=== PATIENT | male | born 1955 | race African-American/Black ===

== ENCOUNTER → 2017-03-11 | Outpatient (CLI) | payer MEDICARE | LOC: RAD 09:02 | PROVIDERS: ATTEND Internal Medicine Gastroenterology | DX: K76.9 Liver disease, unspecified (principal); R93.3 Abnormal findings on diagnostic imaging of other parts of digestive tract | CPT/HCPCS: 74181 ==

== ENCOUNTER 2017-05-14 14:04 | Emergency (ER) | payer OTHER, MEDICARE ==
[2017-05-14 14:10] VITALS: BP 139/83
--- NOTE | 2017-05-14 15:06 | ER Document Report ---
ED Medical Screen (RME) - General Chief Complaint: Other Stated Complaint: DIABETIC CONCERN Time Seen by Provider: 05/14/17 15:05 Mode of Arrival: Ambulatory Information source: Patient Notes: This is a 61-year-old man with a history of diabetes that gave himself a subcutaneous injection with air by accident. The patient states he had 2 syringes and one had insulin and the other did not and he did not really pay attention while giving himself a subcutaneous injection into the right lower abdominal wall. After he realized that he injected air, [facility] He then called the ICU here and was referred to the emergency room. The patient denies any chest pain or shortness of breath. The patient states he feels the same. He is currently drinking soda in triage. TRAVEL OUTSIDE OF THE [place] IN LAST 30 DAYS: No - HPI Onset: Just prior to arrival Onset/Duration: Sudden Quality of pain: No pain Severity: None Pain Level: Denies Associated Symptoms: None Exacerbated by: Denies Relieved by: Denies Similar symptoms previously: No Recently seen / treated by doctor: No - Related Data Smoking: Non-smoker Frequency of alcohol use: None Drug Abuse: None Allergies/Adverse Reactions: lisinopril [Lisinopril] Allergy (Severe, Verified 05/14/17 14:08) Past Medical History - General Information source: Patient - Social History Cigarette use (# per day): No Chew tobacco use (# tins/day): No Frequency of alcohol use: None Drug Abuse: None Lives with: Spouse/Significant other Family history: None - Past Medical History Cardiac Medical History: Reports: Hx Congestive Heart Failure, Hx Hypercholesterolemia, Hx Hypertension Pulmonary Medical History: Reports: Hx Bronchitis, Hx COPD, Hx Pneumonia, Hx Sleep Apnea - Obstructive Endocrine Medical History: Reports: Hx Diabetes Mellitus Type 1, Hx Diabetes Mellitus Type 2 Renal/ Medical History: Reports: Hx Benign Prostatic Hyperplasia, Hx End Stage Renal Disease. Denies: Hx Peritoneal Dialysis GI Medical History: Reports: Hx Gastroesophageal Reflux Disease Musculoskeltal Medical History: Reports Hx Musculoskeletal Deformity, Reports Hx Musculoskeletal Trauma Psychiatric Medical History: Reports: Hx Bipolar Disorder, Hx Depression, Hx Post Traumatic Stress Disorder Past Surgical History: Reports: Hx Orthopedic Surgery - Right shoulder(rotator cuff), Right wrist(carpal tunnel) - Immunizations Immunizations up to date: Yes Hx Diphtheria, Pertussis, Tetanus Vaccination: Yes Review of Systems - Review of Systems Constitutional: No symptoms reported EENT: No symptoms reported Cardiovascular: No symptoms reported Respiratory: No symptoms reported Gastrointestinal: No symptoms reported Genitourinary: No symptoms reported Male Genitourinary: No symptoms reported Musculoskeletal: See HPI Skin: See HPI Hematologic/Lymphatic: No symptoms reported Neurological/Psychological: No symptoms reported Physical Exam - Vital signs Vitals: Temp Pulse Resp BP Pulse Ox 98.1 F 103 H 20 139/83 H 98 05/14/17 14:05/14/17 14:05/14/17 14:05/14/17 14:05/14/17 14:09 Notes: Physical exam: GENERAL: 61-year-old man, alert and oriented 3, no acute distress HEAD: Atraumatic, normocephalic. EYES: Pupils equal round and reactive to light, extraocular movements intact, sclera anicteric, conjunctiva are normal. ENT: Moist mucous membranes. NECK: Normal range of motion, supple without lymphadenopathy or JVD. LUNGS: Breath sounds clear to auscultation bilaterally and equal. No wheezes rales or rhonchi. HEART: Regular rate and rhythm without murmurs, rubs or gallops. ABDOMEN: Soft, normoactive bowel sounds. No tenderness to palpation. No guarding, no rebound. No masses appreciated. No obvious lesions crepitus or fluctuance in the right lower quadrant where the injection was given. EXTREMITIES: Normal range of motion, no pitting or edema. No clubbing or cyanosis. NEUROLOGICAL: Cranial nerves II through XII grossly intact. Normal speech, normal gait. PSYCH: Normal mood, normal affect. SKIN: Warm, Dry, normal turgor, no rashes or lesions noted. Course - Re-evaluation Re-evalutation: 05/14/17 15:10 The injection occurred approximately 1 hour ago. I did go over the importance of paying attention while giving himself injections. I did let him know that an injection of air into the pain can be lethal. I reassured him that the injection into the subcutaneous tissues post little risk. - Vital Signs Vital signs: Temp Pulse Resp BP Pulse Ox 98.1 F 103 H 20 139/83 H 98 05/14/17 14:05/14/17 14:05/14/17 14:09 05/14/17 14:09 05/14/17 14:09 Doctor's Discharge - Discharge Clinical Impression: Skin injection with air Condition: Stable Disposition: HOME, SELF-CARE Additional Instructions: Recommendations: Continue current medicines as previously prescribed. In general, injections into the skin with air are not harmful. However, injections of air into the veins can be lethal. So always pay attention when giving yourself and injection. To the emergency room for chest pain, shortness of breath or any problems. Follow-up with your primary care doctor
== END 2017-05-14 15:09 | disposition home or self-care (01) ==
LOC: ER 14:04
DX: Z03.89 Encounter for observation for other suspected diseases and conditions ruled out (principal); E11.9 Type 2 diabetes mellitus without complications
CPT/HCPCS: 99281

== ENCOUNTER 2017-09-19 10:07 | Emergency (ER) | payer OTHER, MEDICARE ==
[2017-09-19] MEDS ORDERED: HYDROCODONE/ACETAMINOPHEN 5-325 MG TABLET PO ONE (10:19)
[2017-09-19] MEDS ORDERED: TETRACAINE HCL 0.5% OPH SOLN 2 ML OS ONE (10:19)
--- NOTE | 2017-09-19 10:41 | ER Document Report ---
ED General - General Chief Complaint: Eye Problem Stated Complaint: LEFT EYE PAIN Time Seen by Provider: 09/19/17 10:16 Mode of Arrival: Ambulatory Information source: Patient Notes: 61 yr old male who had a cataract surgery performed in 1992 left side presents after striking his eye on a garbage can yesterday. pt ntoes he is unable to see. today he awoke and could barely see light TRAVEL OUTSIDE OF THE [place] IN LAST 30 DAYS: No - HPI Onset: Yesterday Onset/Duration: Sudden Quality of pain: Sharp Severity: Severe Pain Level: 5 Associated symptoms: Other Exacerbated by: Denies Relieved by: Denies Similar symptoms previously: No Recently seen / treated by doctor: No - Related Data Allergies/Adverse Reactions: lisinopril [Lisinopril] Allergy (Severe, Verified 09/19/17 10:11) Home Medications: Current Home Medications Alendronate Sodium [Fosamax "Weekly" 35 mg Tablet] 35 mg PO [id number] 09/19/17 [ History] Escitalopram Oxalate [Lexapro] 20 mg PO DAILY 09/19/17 [History] Gemfibrozil 600 mg PO BID 09/19/17 [History] Losartan Potassium [Cozaar 50 mg Tablet] 50 mg PO DAILY 09/19/17 [History] Magnesium Citrate 250 mg PO DAILY 09/19/17 [History] Risperidone [Risperdal 1 mg Tablet] 4 mg PO QHS 09/19/17 [History] Tiotropium [place] [Spiriva] 18 mcg PO DAILY 09/19/17 [History] Past Medical History - Social History Smoking Status: Current Every Day Smoker Cigarette use (# per day): Yes Chew tobacco use (# tins/day): No Smoking Education Provided: No Frequency of alcohol use: Occasional Drug Abuse: None Family History: Reviewed & Not Pertinent Patient has suicidal ideation: No Patient has homicidal ideation: No - Past Medical History Cardiac Medical History: Reports: Hx Congestive Heart Failure, Hx Hypercholesterolemia, Hx Hypertension Pulmonary Medical History: Reports: Hx Bronchitis, Hx COPD, Hx Pneumonia, Hx Sleep Apnea - Obstructive Endocrine Medical History: Reports: Hx Diabetes Mellitus Type 1, Hx Diabetes Mellitus Type 2 Renal/ Medical History: Reports: Hx Benign Prostatic Hyperplasia, Hx End Stage Renal Disease. Denies: Hx Peritoneal Dialysis GI Medical History: Reports: Hx Gastroesophageal Reflux Disease Musculoskeltal Medical History: Reports Hx Musculoskeletal Deformity, Reports Hx Musculoskeletal Trauma Psychiatric Medical History: Reports: Hx Bipolar Disorder, Hx Depression, Hx Post Traumatic Stress Disorder Past Surgical History: Reports: Hx Orthopedic Surgery - Right shoulder(rotator cuff), Right wrist(carpal tunnel) - Immunizations Immunizations up to date: Yes Hx Diphtheria, Pertussis, Tetanus Vaccination: Yes Hx Pneumococcal Vaccination: 08/08/14 Review of Systems - Review of Systems Notes: REVIEW OF SYSTEMS: CONSTITUTIONAL : Denies fever, chills, or sweats. Denies recent illness. EENT: left eye pain blindness CARDIOVASCULAR: Denies chest pain. Denies palpitations or racing or irregular heart beat. Denies ankle edema. RESPIRATORY: Denies cough, cold, or chest congestion. Denies shortness of breath, difficulty breathing, or wheezing. GASTROINTESTINAL: Denies abdominal pain or distention. Denies nausea, vomiting , or diarrhea. Denies blood in vomitus, stools, or per rectum. Denies black, tarry stools. Denies constipation. GENITOURINARY: Denies difficulty urinating, painful urination, burning, frequency, blood in urine, or discharge. MUSCULOSKELETAL: Denies back or neck pain or stiffness. Denies joint pain or swelling. SKIN: Denies rash, lesions or sores. HEMATOLOGIC : Denies easy bruising or bleeding. LYMPHATIC: Denies swollen, enlarged glands. NEUROLOGICAL: Denies confusion or altered mental status. Denies passing out or loss of consciousness. Denies dizziness or lightheadedness. Denies headache. Denies weakness or paralysis or loss of use of either side. Denies problems with gait or speech. Denies sensory loss, numbness, or tingling. Denies seizures. PSYCHIATRIC: Denies anxiety or stress. Denies depression, suicidal ideation, or homicidal ideation. ALL OTHER SYSTEMS REVIEWED AND NEGATIVE. Dictation was performed using [employer] voice recognition software PHYSICAL EXAMINATION: GENERAL: Well-appearing, well-nourished and in no acute distress. HEAD: Atraumatic, normocephalic. EYES: right eye is normal, left eye the conjunctiva is swollen erythemetous, there is a hyphema, right pressure is 20 , left unable ot attain ENT: Nares patent, oropharynx clear without exudates. Moist mucous membranes. NECK: Normal range of motion, supple without lymphadenopathy LUNGS: Breath sounds clear to auscultation bilaterally and equal. No wheezes rales or rhonchi. HEART: Regular rate and rhythm without murmurs ABDOMEN: Soft, nontender, nondistended abdomen. No guarding, no rebound. No masses appreciated. Musculoskeletal: Normal range of motion, no pitting or edema. No cyanosis. NEUROLOGICAL: Cranial nerves grossly intact. Normal speech, normal gait. Normal sensory, motor exams PSYCH: Normal mood, normal affect. SKIN: Warm, Dry, normal turgor, no rashes or lesions noted. Physical Exam - Vital signs Vitals: Temp Pulse Resp BP Pulse Ox 98.5 F 115 H 20 134/77 H 95 09/19/17 10:11 09/19/17 10:11 09/19/17 10:11 09/19/17 10:11 09/19/17 10:11 Course - Re-evaluation Re-evalutation: 09/19/17 10:36 very high suspicion for blindness from a retrbulbar hemorrhage , unable ot assess pressure in the eye due to severe pain. Dr valdivia who is not pipe production worker was paged, went ot voicemail Dr ochoa who is not pipe production worker was paged , he agrees with concerns for retrobulbar hemorrhage 09/19/17 10:42 diogenes rojas paged they do not have capabilites ot take patient adamdachristiana moored CT ordered without lab work 09/19/17 10:55 Dr Anguiano optho requests a recheck pressure, I explained to her as unable to get it the first time 09/19/17 11:29 CT finding is concerning for penetrating globe injurywith loss of lense [facility] again 09/19/17 11:36 Dr Anguiano accepts transfer , they request ED to ED transfer , requests plastic cover over eye 09/19/17 15:58 - Vital Signs Vital signs: Temp Pulse Resp BP Pulse Ox 98.5 F 99 16 148/94 H 93 09/19/17 11:56 09/19/17 13:16 09/19/17 13:16 09/19/17 13:16 09/19/17 13:16 - Laboratory Result Diagrams: 09/19/17 10:55 09/19/17 10:55 Laboratory results interpreted by me: 09/19/17 09/19/17 10:55 10:55 RBC 4.06 L Hgb 13.3 L RDW 14.6 H Potassium 3.5 L Glucose 147 H - Diagnostic Test Radiology reviewed: Image reviewed, Reports reviewed Critical Care Note - Critical Care Note Total time excluding time spent on procedures (mins): 55 Comments: minutes of critical care time spent in direct contact evaluating and reevaluating the patient, treating symptoms, reviewing labs and studies and speaking with family and consultants excluding any procedures Discharge - Discharge Clinical Impression: Ruptured globe of left eye Qualifiers: Encounter type: initial encounter Qualified Code(s): S05.32XA - Ocular laceration without prolapse or loss of intraocular tissue, left eye, initial encounter Condition: Critical Disposition: [facility] Referrals: ALTA RAMIREZ MD [Primary Care Provider] - Follow up as needed
--- NOTE | 2017-09-19 11:27 | RADIOLOGY REPORT (SQ) ---
EXAM DESCRIPTION: CT ORBIT/SELLA WITH COMPLETED DATE/TIME: 09/19/2017 11:14 am REASON FOR STUDY: left side orbital injury COMPARISON: None. TECHNIQUE: Post contrast images through the orbits windowed for bone and soft tissue. Additional co sharla and sagittal reconstructed images reviewed. All images stored on PACS. All CT scanners at this facility use dose modulation, iterative reconstruction, and/or weight based d osing when appropriate to reduce radiation dose to as low as reasonably achievable (ALARA). [facility]: Dose Right [facility]: CareDose [facility]: Dose Right [facility]: Teradose 4D [facility]: [facility] CONTRAST TYPE AND DOSE: contrast/concentration: Isovue 370.00 mg/ml; Total Contrast Delivered: 50.0 ml; Total Saline Delivered: 50.0 ml RENAL FUNCTION: Not available. RADIATION DOSE: Up-to-date CT equipment and radiation dose reduction techniques were employed. CTDIv ol: 30.4 mGy. DLP: 427 mGy-cm. . LIMITATIONS: None. FINDINGS: FACIAL BONES: No fracture or bone lesion. ORBITS: Disruption of the normal architecture of the left globe. There is heterogeneous increased de nsity within the globe. The lens seen on the prior CT in 2014 is not visualized. No retrobulbar or hemorrhage. PARANASAL SINUSES: Clear. No significant mucosal thickening, mass or fluid. SOFT TISSUES: Left periorbital hematoma. INFERIOR BRAIN: Limited view. No acute findings. OTHER: No other significant finding. IMPRESSION: Penetrating injury to left globe with disruption of the lens and intra ocular hematoma. TECHNICAL DOCUMENTATION: JOB ID: [id number] Quality ID # [id number]: Final reports with documentation of one or more dose reduction techniques (e.g., Au tomated exposure control, adjustment of the mA and/or kV according to patient size, use of iterative reconstruction technique) 2010 [employer] [place]- All Rights Reserved
[2017-09-19] MEDS ORDERED: DIPH/PERTUSS(ACELL)/TETANUS VAC/PF 0.5 ML SYR (>=10YO) IM ONE (11:28)
[2017-09-19] MEDS ORDERED: CEFAZOLIN 1 GM/D5W RTU 1 GM/50 ML RTUPB IV ONE (11:28)
[2017-09-19] MEDS ORDERED: HYDROMORPHONE HCL INJ/PF 2 MG/ML AMPULE IV ONE ×2 (11:28→13:19)
[2017-09-19 11:50] LABS: ABSOLUTE BASOPHILS # (AUTO) 0.1 10^3/uL (0.0-0.2); ABSOLUTE EOSINOPHILS # (AUTO) 0.1 10^3/uL (0.0-0.6); ABSOLUTE LYMPHOCYTES (AUTO) 1.7 10^3/uL (0.5-4.7); ABSOLUTE MONOCYTES (AUTO) 0.4 10^3/uL (0.1-1.4); ABSOLUTE NEUT (AUTO) 5.3 10^3/uL (1.7-8.2); BASOPHILS % (AUTO) 0.7 % (0-2); EOSINOPHILS % (AUTO) 1.1 % (0-6); HEMATOCRIT 39.1 % (37.9-51.0); HEMOGLOBIN 13.3 g/dL (13.5-17.0); HGB HCT DIFFERENCE 0.8; LYMPHOCYTES % (AUTO) 22.4 % (13-45); MEAN CORPUSCULAR HEMOGLOBIN 32.8 pg (27.0-33.4); MEAN CORPUSCULAR VOLUME 96 fl (80-97); MONOCYTES % (AUTO) 5.8 % (3-13); RED BLOOD COUNT 4.06 10^6/uL (4.35-5.55); RED CELL DISTRIBUTION WIDTH 14.6 % (11.5-14.0); WHITE BLOOD COUNT 7.6 10^3/uL (4.0-10.5)
[2017-09-19 11:56] LABS: ALANINE AMINOTRANSFERASE 52 U/L (21-72); ALBUMIN 4.4 g/dL (3.5-5.0); ALKALINE PHOSPHATASE 85 U/L (38-126); ANION GAP 18 (5-19); ASPARTATE AMINO TRANSFERASE 36 U/L (17-59); BILIRUBIN,DIRECT 0.4 mg/dL (0.0-0.4); BILIRUBIN,TOTAL 0.5 mg/dL (0.2-1.3); BLOOD UREA NITROGEN 19 mg/dL (7-20); CALCIUM 9.4 mg/dL (8.4-10.2); CARBON DIOXIDE 26 mmol/L (22-30); CHLORIDE 100 mmol/L (98-107); CREATININE RESULT 1.14 mg/dL (0.52-1.25); GLUCOSE 147 mg/dL (75-110); POTASSIUM 3.5 mmol/L (3.6-5.0); SODIUM 143.9 mmol/L (137-145); TOTAL PROTEIN 7.2 g/dL (6.3-8.2)
[2017-09-19 13:17] VITALS: BP 148/94
== END 2017-09-19 13:26 | disposition short-term general hospital (02) ==
LOC: ER 10:07
DX: S05.32XA Ocular laceration without prolapse or loss of intraocular tissue, left eye, initial encounter (principal); W19.XXXA Unspecified fall, initial encounter; Y93.89 Activity, other specified; F17.210 Nicotine dependence, cigarettes, uncomplicated; I10 Essential (primary) hypertension; J44.9 Chronic obstructive pulmonary disease, unspecified; E11.9 Type 2 diabetes mellitus without complications; Z88.8 Allergy status to other drugs, medicaments and biological substances
CPT/HCPCS: 96376; 99291; 90471; 96375; 96365; 36415; 85025; 80053; 70481; 90715; J0690; J1170

== ENCOUNTER 2017-12-18 19:12 | Emergency (ER) | payer OTHER, MEDICARE ==
[2017-12-18] MEDS ORDERED: NOREPINEPHRINE BITARTRATE INJ/PF 4 MG/4 ML SDV IV ONE (19:19)
[2017-12-18] MEDS ORDERED: VECURONIUM BROMIDE INJ 10 MG VIAL IV ONE ×2 (19:26→19:28)
[2017-12-18] MEDS ORDERED: ETOMIDATE INJ/PF 20 MG/10 ML SDV IV ONE (19:27)
--- NOTE | 2017-12-18 19:46 | ER Document Report ---
ED General - General Mode of Arrival: Medic Information source: Emergency Med Personnel Cannot obtain history due to: Intubated TRAVEL OUTSIDE OF THE [place] IN LAST 30 DAYS: No <JER VILLA - Last Filed: 12/18/17 22:08> <MARAMAYAMARILEE - Last Filed: 12/18/17 22:47> - General Stated Complaint: FALL,HEAD INJURY Time Seen by Provider: 12/18/17 19:12 Notes: Patient is a 62 year old male with a history of CHF, COPD, hypertension and diabetes presents to the emergency department via EMS due to a fall and being found unresponsive. states the patient was walking in his home when he fell and hit is head. states she found the patient on the floor and unresponsive although he was breathing for a moment. states she saw the patient take his last breath prior to EMS arrival. states the patient had a 5th of hard liquor this evening. EMS states they found the patient in asystole and proceeded to give compressions and 1 Epi after which they were able to get a cardiac rhythm prior to arrival. (JER VILLA) - Related Data Allergies/Adverse Reactions: lisinopril [Lisinopril] Allergy (Severe, Verified 09/19/17 10:11) Past Medical History - General Information source: Relative - Social History Smoking Status: Former Smoker Cigarette use (# per day): No Chew tobacco use (# tins/day): No Smoking Education Provided: No Frequency of alcohol use: Heavy Drug Abuse: None - Former abuser, last know usage was years ago according to . Family History: Reviewed & Not Pertinent - Past Medical History Cardiac Medical History: Reports: Hx Congestive Heart Failure, Hx Hypercholesterolemia, Hx Hypertension Pulmonary Medical History: Reports: Hx Bronchitis, Hx COPD, Hx Pneumonia, Hx Sleep Apnea - Obstructive Endocrine Medical History: Reports: Hx Diabetes Mellitus Type 1, Hx Diabetes Mellitus Type 2 Renal/ Medical History: Reports: Hx Benign Prostatic Hyperplasia, Hx End Stage Renal Disease GI Medical History: Reports: Hx Gastroesophageal Reflux Disease Musculoskeltal Medical History: Reports Hx Musculoskeletal Deformity, Reports Hx Musculoskeletal Trauma Psychiatric Medical History: Reports: Hx Bipolar Disorder, Hx Depression, Hx Post Traumatic Stress Disorder Past Surgical History: Reports: Hx Orthopedic Surgery - Right shoulder(rotator cuff), Right wrist(carpal tunnel) - Immunizations Immunizations up to date: Yes Hx Diphtheria, Pertussis, Tetanus Vaccination: Yes Hx Pneumococcal Vaccination: 08/08/14 <JER VILLA - Last Filed: 12/18/17 22:08> Review of Systems - Review of Systems -: Yes ROS unobtainable due to patient's medical condition <JER VILLA - Last Filed: 12/18/17 22:08> Physical Exam <DAISY,TAMBALDOMERO - Last Filed: 12/18/17 22:08> <MARILEE DIALLO - Last Filed: 12/18/17 22:47> - Vital signs Vitals: BP 81/65 L 12/18/17 19:14 - Notes Notes: GENERAL: Unresponsive. Intubated HEAD: Normocephalic, atraumatic. EYES: Pinpoint left pupil, irregular from scarring. ENT: Oral mucosa moist, tongue midline. NECK: C-collar placed. LUNGS: Spontaneous respirations. HEART: Regular rate and rhythm. No murmurs, gallops, or rubs. ABDOMEN: Soft, non-tender. Slighlty distended. Ecchymosis across abdomen. Bowel sounds present in all 4 quadrants. EXTREMITIES: No edema, radial and dorsalis pedis pulses 2/4 bilaterally. No cyanosis. NEUROLOGICAL: Unresponsive. PSYCH: Unresponsive. SKIN: Warm, dry, normal turgor. Ecchymosis located on abdomen. (DAISYJER DUEÑAS) Course - Laboratory Result Diagrams: 12/18/17 19:15 12/18/17 19:15 <JER VILLA - Last Filed: 12/18/17 22:08> - Laboratory Result Diagrams: 12/18/17 19:15 12/18/17 19:15 <MARILEE DIALLO - Last Filed: 12/18/17 22:47> - Re-evaluation Re-evalutation: 12/18/17 22:43 Patient arrived intubated, hypotensive, making moderate respiratory efforts, no hypoxia. No evidence for cause of her wrist seen on external physical exam. Did not withdraw from painful stimuli. Patient was resuscitated with fluids and Levophed drip prior to attempting reintubation. Patient was intubated using an 8 oh ET tube using the glide scope. No complications were encountered. PA student Gissell Sanchez assisted. Blood work reveals normal white blood cell count, mild anemia with a hemoglobin 11.6, slightly low platelets at 148, coags normal, arterial blood gas shows metabolic acidosis with a pH of 7.26, CO2 is normal at 44.3, chemistries revealed low potassium at 2.8, this is repleted using IV and oral potassium, CO2 slightly low at 19, acute renal failure with creatinine 1.59, AST and ALT somewhat elevated consistent with shock liver, troponin is only mildly elevated at 0.128, proBNP elevated 660. Urinalysis shows small blood otherwise unremarkable, serum alcohol level is 217 which is actually lower than expected as his family members state he drank 1/5 of hard liquor today. Urine drug screen is negative as are tests for salicylates and acetaminophen. CT scan of the head shows no acute process, bedside ultrasound performed by myself showed good cardiac motion but somewhat dilated right ventricle so is concerned for possible pulmonary embolism, this did not show any pulmonary embolism, there were acute anterior rib fractures bilaterally consistent with chest compressions , no other acute findings were found. Chest x-ray does not show these rib fractures but it does show good placement of the ET tube. Cervical spine CAT scan was also performed and this was negative for acute fracture or dislocation. At present I have no cause for his arrest. We will maintain the patient and normothermia, he does not appear to be a candidate for cooling. His neurologic status is improving, he was able to be weaned off of the levophed down to 1 mcg/ min. He did then require me to start a Versed drip for sedation as he started gagging for against the tube and moving his arms. He has not yet started to withdrawal from painful stimuli. I do believe this patient would benefit from the services of an vendor manager, a neurologist and possibly an highway landscape architect given that we do not have any cause for his cardiac arrest. Discussed the patient with Dr. Valentine at [facility] who accepts the patient to his service in the CCU. (MARILEE DIALLO) - Vital Signs Vital signs: Temp Pulse Resp BP Pulse Ox 81/65 L 100 12/18/17 19:14 12/18/17 19:29 - Laboratory Laboratory results interpreted by me: 12/18/17 12/18/17 12/18/17 19:15 19:15 19:15 RBC 3.33 L Hgb 11.6 L Hct 34.1 L MCV 103 H MCH 34.9 H RDW 14.1 H Plt Count 148 L Lymphocytes % 45.3 H ABG pH ABG HCO3 ABG Total CO2 Potassium 2.8 L* Carbon Dioxide 19 L Creatinine 1.59 H Est GFR ( Amer) 53 L Est GFR (Non-Af Amer) 44 L Glucose 198 H AST 144 H ALT 76 H Creatine Kinase 507 H Total Protein 5.4 L Albumin 3.3 L Urine Protein Urine Glucose (UA) Urine Blood Salicylates < 1.0 L Acetaminophen < 10 L 12/18/17 12/18/17 19:55 21:34 RBC Hgb Hct MCV MCH RDW Plt Count Lymphocytes % ABG pH 7.26 L ABG HCO3 19.3 L ABG Total CO2 20.7 L Potassium Carbon Dioxide Creatinine Est GFR ( Amer) Est GFR (Non-Af Amer) Glucose AST ALT Creatine Kinase Total Protein Albumin Urine Protein 100 H Urine Glucose (UA) 50 H Urine Blood SMALL H Salicylates Acetaminophen Procedures - Intubation Orotracheal Airway evaluation: Large tongue, Loose teeth, Neck immobility, Obese Medications: Etomidate, Vecuronium Intubation method: Orotracheal Blade type: [place] Blade size: 4 Equipment used: Glidescope ETT size: 8.0 ETT secured at: Teeth ETT secured at (cm): 23 Breath Sounds after Intubation: Equal End tidal CO2 confirmed: Yes Ventilator settings: SIMV Tidal volume: 450 FiO2: 40 Respirations: 14 Pressure support: 10 PEEP: 5 Post Intubation Xray: Yes Intubation Complications: No complications <MARILEE DIALLO - Last Filed: 12/18/17 22:47> Critical Care Note - Critical Care Note Total time excluding time spent on procedures (mins): 100 <MARILEE DIALLO - Last Filed: 12/18/17 22:47> Discharge <JER VILLA - Last Filed: 12/18/17 22:08> <MARILEE DIALLO - Last Filed: 12/18/17 22:47> - Discharge Clinical Impression: Cardiac arrest, Troponin level elevated Acute renal failure Qualifiers: Acute renal failure type: unspecified Qualified Code(s): N17.9 - Acute kidney failure, unspecified Diabetes mellitus Qualifiers: Diabetes mellitus type: type 2 Diabetes mellitus complication status: with hyperglycemia Diabetes mellitus correction insulin use: unspecified technician terminal and repeater insulin use status Qualified Code(s): E11.65 - Type 2 diabetes mellitus with hyperglycemia Obesity Qualifiers: Obesity type: unspecified obesity type Obesity classification: adult class 1 ( BMI 30 - 34.9) Serious obesity comorbidity presence: with serious comorbidity Body mass index: BMI 31.0-31.9 Qualified Code(s): E66.9 - Obesity, unspecified; Z68.31 - Body mass index (BMI) 31.0-31.9, adult; Z68.31 - Body mass index (BMI) 31.0-31.9, adult Condition: Critical Disposition: [facility] Scribe Documentation - Scribe Written by Scribe:: Nilson Duran, 12/18/2017 20:12 acting as scribe for :: Harmony <JER VILLA - Last Filed: 12/18/17 22:08>
[2017-12-18 19:58] LABS: ABSOLUTE BASOPHILS # (AUTO) 0.1 10^3/uL (0.0-0.2); ABSOLUTE EOSINOPHILS # (AUTO) 0.1 10^3/uL (0.0-0.6); ABSOLUTE LYMPHOCYTES (AUTO) 4.6 10^3/uL (0.5-4.7); ABSOLUTE MONOCYTES (AUTO) 0.6 10^3/uL (0.1-1.4); ABSOLUTE NEUT (AUTO) 4.7 10^3/uL (1.7-8.2); BASOPHILS % (AUTO) 0.7 % (0-2); EOSINOPHILS % (AUTO) 1.1 % (0-6); HEMATOCRIT 34.1 % (37.9-51.0); HEMOGLOBIN 11.6 g/dL (13.5-17.0); LYMPHOCYTES % (AUTO) 45.3 % (13-45); MEAN CORPUSCULAR HEMOGLOBIN 34.9 pg (27.0-33.4); MEAN CORPUSCULAR VOLUME 103 fl (80-97); MONOCYTES % (AUTO) 6.1 % (3-13); PLATELET COUNT 148 10^3/uL (150-450); RED BLOOD COUNT 3.33 10^6/uL (4.35-5.55); RED CELL DISTRIBUTION WIDTH 14.1 % (11.5-14.0); SEGMENTED NEUTROPHILS % (AUTO) 46.8 % (42-78); TOTAL CELLS COUNTED % (AUTO) 100 %; WHITE BLOOD COUNT 10.2 10^3/uL (4.0-10.5)
[2017-12-18 19:59] LABS: ALANINE AMINOTRANSFERASE 76 U/L (21-72); ALBUMIN 3.3 g/dL (3.5-5.0); ALKALINE PHOSPHATASE 78 U/L (38-126); ANION GAP 19 (5-19); ASPARTATE AMINO TRANSFERASE 144 U/L (17-59); BILIRUBIN,DIRECT 0.3 mg/dL (0.0-0.4); BILIRUBIN,TOTAL 0.3 mg/dL (0.2-1.3); BLOOD UREA NITROGEN 15 mg/dL (7-20); CALCIUM 8.4 mg/dL (8.4-10.2); CARBON DIOXIDE 19 mmol/L (22-30); CHLORIDE 100 mmol/L (98-107); CREATINE KINASE 507 U/L (55-170); GLUCOSE 198 mg/dL (75-110); SODIUM 138.3 mmol/L (137-145); TOTAL PROTEIN 5.4 g/dL (6.3-8.2)
[2017-12-18 20:05] LABS: INTERNATIONAL RATION (INR) 0.89; PROTHROMBIN TIME 12.7 SEC (11.4-15.4)
[2017-12-18 20:06] LABS: ALCOHOL 217 mg/dL (NONE DETECTED); POTASSIUM 2.8 mmol/L (3.6-5.0)
[2017-12-18 20:07] LABS: ACETAMINOPHEN < 10 ug/mL (10-30); SALICYLATE < 1.0 mg/dL (2.0-20.0)
[2017-12-18] MEDS ORDERED: POTASSIUM CHLORIDE 20 MEQ/15 ML UDCUP PO ONE (20:07)
[2017-12-18] MEDS ORDERED: RINGERS SOLUTION,LACTATED 1,000 ML IV ONE (20:08)
[2017-12-18 20:13] LABS: TROPONIN I 0.128 ng/mL
[2017-12-18 20:34] LABS: ARTERIAL BLOOD BASE EXCESS -7.5 mmol/L; ARTERIAL BLOOD FIO2 40%; ARTERIAL BLOOD H2CO3 1.33 mmol/L (1.05-1.35); ARTERIAL BLOOD HCO3 19.3 mmol/L (20-26); ARTERIAL BLOOD PCO2 44.3 mmHg (35-45); ARTERIAL BLOOD PH 7.26 (7.35-7.45); ARTERIAL BLOOD PO2 85.3 mmHg (80-100); ARTERIAL BLOOD TOTAL CO2 20.7 mmol/L (23-27)
--- NOTE | 2017-12-18 20:37 | RADIOLOGY REPORT (SQ) ---
EXAM DESCRIPTION: CT HEAD WITHOUT COMPLETED DATE/TIME: 12/18/2017 8:18 pm REASON FOR STUDY: fal, hit head, asystole arrest COMPARISON: 11/18/2014 TECHNIQUE: Axial images acquired through the brain without intravenous contrast. Images reviewed wi th bone, brain and subdural windows. Images stored on PACS. All CT scanners at this facility use dose modulation, iterative reconstruction, and/or weight based d osing when appropriate to reduce radiation dose to as low as reasonably achievable (ALARA). [facility]: Dose Right [facility]: CareDose [facility]: Dose Right [facility]: Teradose 4D [facility]: Smart [employer] RADIATION DOSE: CT Rad equipment meets quality standard of care and radiation dose reduction techniq ues were employed. CTDIvol: 64.6 mGy. DLP: 1163 mGy-cm. mGy. LIMITATIONS: None. FINDINGS: VENTRICLES: Prominent. CEREBRUM: No masses. No hemorrhage. No midline shift. Areas of low density in the white matter mos t likely due to chronic micro-vascular ischemic change. No evidence for acute infarction. CEREBELLUM: No masses. No hemorrhage. No alteration of density. No evidence for acute infarction. EXTRAAXIAL SPACES: Mild age-related involutional change. No fluid collections. No masses. ORBITS AND GLOBE: No intra- or extraconal masses. Normal contour of globe without masses. CALVARIUM: No fracture. PARANASAL SINUSES: No fluid or mucosal thickening. SOFT TISSUES: No mass or hematoma. OTHER: No other significant finding. IMPRESSION: MILD CHRONIC CHANGES OF ATROPHY AND MICROVASCULAR ISCHEMIA. NO ACUTE PROCESS. EVIDENCE OF ACUTE STROKE: NO. TECHNICAL DOCUMENTATION: JOB ID: [id number] Quality ID # 436: Final reports with documentation of one or more dose reduction techniques (e.g., Au tomated exposure control, adjustment of the mA and/or kV according to patient size, use of iterative reconstruction technique) 2010 [employer]- All Rights Reserved
--- NOTE | 2017-12-18 20:42 | RADIOLOGY REPORT (SQ) ---
EXAM DESCRIPTION: CT CERVICAL SPINE WITHOUT COMPLETED DATE/TIME: 12/18/2017 8:23 pm REASON FOR STUDY: fal, hit head, asystole arrest COMPARISON: None. TECHNIQUE: Axial images acquired through the cervical spine without intravenous contrast. Images re viewed with lung, soft tissue and bone windows. Reconstructed coronal and sagittal MPR images review ed. Images stored on PACS. All CT scanners at this facility use dose modulation, iterative reconstruction, and/or weight based d osing when appropriate to reduce radiation dose to as low as reasonably achievable (ALARA). [facility]: Dose Right [facility]: CareDose [facility]: Dose Right [facility]: Teradose 4D [facility]: Smart [employer] RADIATION DOSE: CT Rad equipment meets quality standard of care and radiation dose reduction techniq ues were employed. CTDIvol: 30.8 mGy. DLP: 767 mGy-cm. mGy. LIMITATIONS: None. FINDINGS: ALIGNMENT: Anatomic. MINERALIZATION: Normal. VERTEBRAL BODIES: No fractures or dislocation. DISCS: Multilevel disc space narrowing with osteophytes. FACETS, LATERAL MASSES, POSTERIOR ELEMENTS: Facet arthropathy. No fractures. No dislocation. No ac kiran findings. HARDWARE: An endotracheal tube is present. VISUALIZED RIBS: No fractures. LUNG APICES AND SOFT TISSUES: Biapical scarring. OTHER: No other significant finding. IMPRESSION: 1. No evidence of acute osseous injury. Background of chronic degenerative changes. 2. Endotracheal tube, partially imaged. TECHNICAL DOCUMENTATION: JOB ID: [id number] Quality ID # [id number]: Final reports with documentation of one or more dose reduction techniques (e.g., Au tomated exposure control, adjustment of the mA and/or kV according to patient size, use of iterative reconstruction technique) 2010 [email or web address]- All Rights Reserved
--- NOTE | 2017-12-18 20:58 | RADIOLOGY REPORT (SQ) ---
EXAM DESCRIPTION: CTA CHEST COMPLETED DATE/TIME: 12/18/2017 8:32 pm REASON FOR STUDY: fal, hit head, asystole arrest COMPARISON: None. TECHNIQUE: CT scan of the chest performed using helical scanning technique with dynamic intravenous contrast injection. Images reviewed with lung, soft tissue and bone windows. Reconstructed coronal and sagittal MPR images reviewed. Additional 3 dimensional post-processing performed to develop Maximal Intensity Projection images (PR P). All images stored on PACS. All CT scanners at this facility use dose modulation, iterative reconstruction, and/or weight based d osing when appropriate to reduce radiation dose to as low as reasonably achievable (ALARA). [facility]: Dose Right [facility]: CareDose [facility]: Dose Right [facility]: Teradose 4D [facility]: Smart Gal[employer] CONTRAST TYPE AND DOSE: contrast/concentration: Isovue mg/ml; Total Contrast Delivered: 90.0 ml; To ashely Saline Delivered: 73.0 ml Contrast bolus optimized for the pulmonary arteries. Not diagnostic for the aorta. RENAL FUNCTION: Due to the severity of the patient's condition, imaging was performed prior to [facility] laboratory evaluation. RADIATION DOSE: CT Rad equipment meets quality standard of care and radiation dose reduction techniq ues were employed. CTDIvol: 29.8 - 41.3 mGy. DLP: 1241 mGy-cm. . LIMITATIONS: None. FINDINGS: LUNGS AND PLEURA: Dependent atelectasis bilaterally. No focal consolidation. No pleural effusion. No pneumothorax. AORTA AND GREAT VESSELS: No aneurysm. Contrast bolus not optimized for the aorta. HEART: No pericardial effusion. No significant coronary artery calcifications. PULMONARY ARTERIES: No emboli visualized in the main pulmonary arteries or the segmental branches. HILAR AND MEDIASTINAL STRUCTURES: No identified masses or abnormal nodes. HARDWARE: An endotracheal tube is present and appropriately positioned. UPPER ABDOMEN: No significant findings. Limited exam. THYROID AND OTHER SOFT TISSUES: No masses. No adenopathy. BONES: Multiple acute anterior rib fractures are seen bilaterally. Chronic and healed rib fractures are seen posterolaterally on the left. 3D MIPS: Confirm above findings. OTHER: No other significant finding. IMPRESSION: 1. No pulmonary embolus. 2. Endotracheal tube positioned appropriately. 3. Multiple acute anterior rib fractures bilaterally consistent with sequela of chest compressions. Background of chronic and healed fractures on the left. COMMENT: Quality ID # 436: Final reports with documentation of one or more dose reduction techniques (e.g., Automated exposure control, adjustment of the mA and/or kV according to patient size, use of iterative reconstruction technique) TECHNICAL DOCUMENTATION: JOB ID: [id number] [employer] All Rights Reserved
--- NOTE | 2017-12-18 21:16 | RADIOLOGY REPORT (SQ) ---
EXAM DESCRIPTION: CHEST SINGLE VIEW COMPLETED DATE/TIME: 12/18/2017 9:01 pm REASON FOR STUDY: ETT placement COMPARISON: Chest CT 12/18/2017 EXAM PARAMETERS: NUMBER OF VIEWS: One view. TECHNIQUE: Single frontal radiographic view of the chest acquired. RADIATION DOSE: NA LIMITATIONS: None. FINDINGS: LUNGS AND PLEURA: Stable pulmonary exam. MEDIASTINUM AND HILAR STRUCTURES: No masses. Contour normal. HEART AND VASCULAR STRUCTURES: Heart normal in size. Normal vasculature. BONES: Acute rib fractures described on comparison CT are not visible radiographically. Healed and c hronic fractures are seen of the left posterolateral ribs. HARDWARE: Endotracheal tube is stable in position. Enteric tube is seen along the expected course of the esophagus terminating subdiaphragmatically out of the field of view. OTHER: No other significant finding. IMPRESSION: Endotracheal and enteric tubes without evidence of complication. TECHNICAL DOCUMENTATION: JOB ID: [id number] [employer]- All Rights Reserved
[2017-12-18] MEDS: POTASSI CL 20 MEQ/50 ML RIDER 20 MEQ/50 ML RTUPB IV SCH ×2 (21:52→23:33)
[2017-12-18 22:07] LABS: APPEARANCE,URINE SLIGHTLY-CLOUDY; BILIRUBIN,URINE NEGATIVE (NEGATIVE); COLOR,URINE YELLOW; GLUCOSE, URINE 50 mg/dL (NEGATIVE); KETONES,URINE NEGATIVE (NEGATIVE); LEUKOCYTE ESTERASE,URINE NEGATIVE (NEGATIVE); NITRITE,URINE NEGATIVE (NEGATIVE); PROTEIN,URINE 100 mg/dL (NEGATIVE); URINE SPECIFIC GRAVITY 1.054; UROBILINOGEN,URINE NEGATIVE mg/dL (<2.0)
[2017-12-18 22:13] LABS: URINE AMPHETAMINES SCREEN NEGATIVE; URINE BARBITURATES SCREEN NEGATIVE; URINE BENZODIAZEPINES SCREEN NEGATIVE; URINE COCAINE SCREEN NEGATIVE; URINE MARIJUANA (THC) SCREEN NEGATIVE; URINE METHADONE SCREEN NEGATIVE; URINE PHENCYCLIDINE SCREEN NEGATIVE
[2017-12-18] MEDS ORDERED: MIDAZOLAM HCL 50 MG/100 ML RTUINJ IV PRN (22:19)
[2017-12-18 23:48] VITALS: BP 113/71
--- NOTE | 2017-12-19 09:05 | EKG REPORT ---
SEVERITY:- BORDERLINE ECG - SINUS RHYTHM ATRIAL PREMATURE COMPLEX BORDERLINE T ABNORMALITIES, INFERIOR LEADS BORDERLINE PROLONGED QT INTERVAL : Confirmed by: Lili Nowak 19-Dec-2017 09:04:45
== END 2017-12-19 00:20 | disposition short-term general hospital (02) ==
LOC: ER 19:12
PROC: 0BH17EZ Insertion of Endotracheal Airway into Trachea, Via Natural or Artificial Opening (ICD-10-PCS; principal; 2017-12-18)
DX: I46.9 Cardiac arrest, cause unspecified (principal); N17.9 Acute kidney failure, unspecified; E66.9 Obesity, unspecified; Z68.31 Body mass index [BMI] 31.0-31.9, adult; S09.90XA Unspecified injury of head, initial encounter; I50.9 Heart failure, unspecified; J44.9 Chronic obstructive pulmonary disease, unspecified; I10 Essential (primary) hypertension; E11.9 Type 2 diabetes mellitus without complications; W19.XXXA Unspecified fall, initial encounter; Z87.891 Personal history of nicotine dependence
CPT/HCPCS: 93005; 99291; 99292; 96365; 96366; 96368; 36415; 82553; 80307 ×4; 82803; 82550; 83735; 85025; 85610; 80053; 81001; 84484; 83880; 71045; 70450; 71275; 72125; 93010; 31500; L0172; J3490 ×3; J3480; J2250; J7120; 94002